=== PATIENT | female | born 1960 | race Caucasian/White ===

== ENCOUNTER 2018-05-27 14:40 | Emergency (ER) | payer MEDICAID ==
[2018-05-27 14:41] VITALS: BMI 35.4
[2018-05-27 15:11] VITALS: TEMP 98.2
[2018-05-27 15:58] LABS: URINE BILIRUBIN NEGATIVE (NEGATIVE); URINE BLOOD TRACE-INTACT (NEGATIVE); URINE GLUCOSE (UA) NEGATIVE (NEGATIVE); URINE LEUKOCYTE ESTERASE MODERATE Leu/uL (NEGATIVE); URINE PROTEIN NEGATIVE mg/dL (<30 mg/dL); URINE UROBILINOGEN 0.2 E.U./dL (<1 E.U./dL)
[2018-05-27 15:59] LABS: URINE APPEARANCE CLEAR (CLEAR); URINE COLOR YELLOW (YELLOW)
[2018-05-27 16:02] LABS: EOS % 0.3 % (1.5-5.0); HEMOGLOBIN 11.3 g/dL (12.0-16.0); LYMPH # 1.3 (1.2-3.4); LYMPH % 36.8 % (22.0-35.0); MEAN CELL VOLUME 80.7 fl (80.0-105.0); MEAN CORPUSCULAR HEMOGLOBIN 24.6 pg (25.0-35.0); MEAN CORPUSCULAR HGB CONC 30.5 g/dl (31.0-37.0); MONO # 0.2 (0.1-0.6); MONO % 5.8 % (1.0-6.0); RBC 4.6 10^6/uL (3.5-6.1); RED CELL DISTRIBUTION WIDTH 13.7 % (11.5-14.5); WHITE BLOOD COUNT 3.4 10^3/uL (4.5-11.0)
[2018-05-27 16:03] LABS: URINE BACTERIA SMALL /hpf; URINE RBC 0 - 2 /hpf (0-2)
[2018-05-27 16:11] LABS: INR 1.09; PROTHROMBIN TIME 12.1 SECONDS (9.4-12.5)
[2018-05-27 16:13] LABS: ALB/GLOB RATIO 1.3 (1.1-1.8); ALBUMIN 4.6 g/dL (3.0-4.8); AMYLASE 75 U/L (35-125); AST/SGOT 17 U/L (14-36); BLOOD UREA NITROGEN 19 mg/dL (7-21); CALCIUM 9.7 mg/dL (8.4-10.5); GFR NON-AFRICAN AMERICAN > 60; LIPASE 148 U/L (23-300)
[2018-05-27 16:24] LABS: TROPONIN I < 0.01 ng/mL
--- NOTE | 2018-05-27 16:25 | ED PDOC ---
Arrival/HPI - General Chief Complaint: Female Genitourinary Time Seen by Provider: 05/27/18 15:20 Historian: Patient - History of Present Illness Narrative History of Present Illness (Text): 05/27/18 16:22 57yo female with pmhx of hypertension who present with complaint of suprapubic abdominal pain x 3days. Also complain of intermittent palpitation x months. States she have not seen her Doctor for the symptoms. Denies chest pain, SOB, diaphoresis, cough, fever, chills, dysuria, hematuria, nausea, vomiting, vaginal discharge, ripping/tearing upper back pain. Past Medical History - Provider Review Nursing Documentation Reviewed: Yes - Past History Past History: No Previous - Infectious Disease Hx of Infectious Diseases: None - Tetanus Immunization Tetanus Immunization: Unknown - Reproductive Menopause: Yes - Cardiac Hx Cardiac Disorders: Yes Hx Hypertension: Yes - Psychiatric Hx Psychophysiologic Disorder: No Hx Anxiety: No Hx Bipolar Disorder: No Hx Depression: No Hx Emotional Abuse: No Hx Hallucinations: No Hx Panic Disorder: No Hx Post Traumatic Stress Disorder: No Hx Psychosis: No Hx Physical Abuse: No Hx Schizophrenia: No Hx Sexual Abuse: No Hx Substance Use: No - Anesthesia Hx Anesthesia: No Hx Anesthesia Reactions: No Hx Malignant Hyperthermia: No - Suicidal Assessment Feels Threatened In Home Enviroment: No Family/Social History - Physician Review Nursing Documentation Reviewed: Yes Family/Social History: Unknown Family HX Smoking Status: Never Smoked Hx Alcohol Use: No Hx Substance Use: No Allergies/Home Meds Allergies/Adverse Reactions: Allergies No Known Allergies Allergy (Verified 07/22/15 21:38) Home Medications: Home Meds Medication Instructions Recorded Confirmed Lisinopril [Zestril] 10 mg PO DAILY 05/27/18 05/27/18 Review of Systems - Physician Review All systems were reviewed & negative as marked: Yes - Review of Systems Constitutional: Normal Eyes: Normal ENT: Normal Respiratory: Normal Cardiovascular: Palpitations Gastrointestinal: Abdominal Pain (Suprapubic pain). absent: Constipation, Diarrhea, Nausea, Vomiting, Hematochezia, Hematemesis Genitourinary Female: Normal Musculoskeletal: Normal Skin: Normal Neurological: Normal Endocrine: Normal Hemo/Lymphatic: Normal Psychiatric: Normal Physical Exam Vital Signs Temp Pulse Resp BP Pulse Ox 05/27/18 15:04 98.2 F 65 18 174/92 H 98 Temperature: Afebrile Blood Pressure: Normal Pulse: Regular Respiratory Rate: Normal Appearance: Positive for: Well-Appearing, Non-Toxic, Comfortable Pain Distress: None Mental Status: Positive for: Alert and Oriented X 3 - Systems Exam Head: Present: Atraumatic, Normocephalic Pupils: Present: PERRL Extroacular Muscles: Present: EOMI Conjunctiva: Present: Normal Mouth: Present: Moist Mucous Membranes Neck: Present: Normal Range of Motion Respiratory/Chest: Present: Clear to Auscultation, Good Air Exchange. No: Respiratory Distress, Accessory Muscle Use Cardiovascular: Present: Regular Rate and Rhythm, Normal S1, S2. No: Murmurs Abdomen: No: Tenderness, Distention, Peritoneal Signs Back: Present: Normal Inspection Upper Extremity: Present: Normal Inspection. No: Cyanosis, Edema Lower Extremity: Present: Normal Inspection. No: Edema Neurological: Present: GCS=15, CN II-XII Intact, Speech Normal Skin: Present: Warm, Dry, Normal Color. No: Rashes Psychiatric: Present: Alert, Oriented x 3, Normal Insight, Normal Concentration Medical Decision Making ED Course and Treatment: 05/27/18 17:43 57yo female in ED for suprapubic pain x2days and intermittent palpitation x months. Pt was not in any distress in ED. She denied chest pain in ED. Labs UA EKG EKG NSR @ 60bpm. Incomplete RBBB. Labs was unremarkable. Pt had a UTI and was treated with Keflex. Advised to f/u a [facility] for possible holter monitor and further outpt evaluation. - Lab Interpretations Lab Results: PT 12.1 SECONDS (9.4-12.5) 05/27/18 15:50 INR 1.09 05/27/18 15:50 APTT 36.0 Seconds (26.9-38.3) 05/27/18 15:50 Total Bilirubin 0.2 mg/dL (0.2-1.3) 05/27/18 15:50 AST 17 U/L (14-36) 05/27/18 15:50 Alkaline Phosphatase 66 U/L (38-126) 05/27/18 15:50 Total Protein 8.1 g/dL (5.8-8.3) 05/27/18 15:50 Albumin 4.6 g/dL (3.0-4.8) 05/27/18 15:50 Globulin 3.5 gm/dL 05/27/18 15:50 Albumin/Globulin Ratio 1.3 (1.1-1.8) 05/27/18 15:50 Amylase 75 U/L (35-125) 05/27/18 15:50 Lipase 148 U/L (23-300) 05/27/18 15:50 Urine Color Yellow (YELLOW) 05/27/18 15:41 Urine Appearance Clear (CLEAR) 05/27/18 15:41 Urine pH 6.0 (4.7-8.0) 05/27/18 15:41 Ur Specific [place] >= 1.030 (1.005-1.035) 05/27/18 15:41 Urine Protein Negative mg/dL (<30 mg/dL) 05/27/18 15:41 Urine Glucose (UA) Negative mg/dL (NEGATIVE) 05/27/18 15:41 Urine Ketones Negative mg/dL (NEGATIVE) 05/27/18 15:41 Urine Blood Trace-intact (NEGATIVE) H 05/27/18 15:41 Urine Nitrate Negative (NEGATIVE) 05/27/18 15:41 Urine Bilirubin Negative (NEGATIVE) 05/27/18 15:41 Urine Urobilinogen 0.2 E.U./dL (<1 E.U./dL) 05/27/18 15:41 Ur Leukocyte Esterase Moderate Oliver/uL (NEGATIVE) H 05/27/18 15:41 Urine RBC 0 - 2 /hpf (0-2) 05/27/18 15:41 Urine WBC 5 - 10 /hpf (0-6) H 05/27/18 15:41 Ur Epithelial Cells 1 - 3 /hpf (0-5) 05/27/18 15:41 Urine Bacteria Small /hpf (NONE) 05/27/18 15:41 Disposition/Present on Arrival - Present on Arrival Any Indicators Present on Arrival: No History of DVT/PE: No History of Uncontrolled Diabetes: No Urinary Catheter: No History of Decub. Ulcer: No History Surgical Site Infection Following: None - Disposition Have Diagnosis and Disposition been Completed?: Yes Diagnosis: Palpitation, UTI (urinary tract infection) Disposition: HOME/ ROUTINE Disposition Time: 16:40 Patient Plan: Discharge Condition: STABLE Discharge Instructions (ExitCare): Urinary Tract Infections in Adults, Palpitations Additional Instructions: Follow up with your Doctor/[facility] Return to ED for any new or worsening symptoms Prescriptions: Cephalexin [Keflex] 500 mg PO TID #21 capsule Referrals: Marino Lane MD [Staff Provider] - Follow up with primary Forms: [employer] ([employer])
[2018-05-27 16:26] LABS: ALT/SGPT < 6 U/L (7-56)
[2018-05-27 17:04] VITALS: BP 126/69; PULSE 60; RESP 17; O2SAT 100
--- NOTE | 2018-05-28 16:38 | CARD ---
APPROVED REPORT Date of service: 05/27/2018 EKG Measurement Heart [id number] ID [id number] <Conclusion> Normal sinus rhythm Incomplete right bundle branch block Cannot rule out Anterior infarct, age undetermined Abnormal ECG
== END 2018-05-27 17:02 | disposition home or self-care (01) ==
LOC: ED 14:40
DX: R00.2 Palpitations (principal); N39.0 Urinary tract infection, site not specified; I10 Essential (primary) hypertension